=== PATIENT | male | born 1955 | race Caucasian/White ===

== ENCOUNTER → 2016-09-28 | Outpatient (CLI) | payer OTHER ==
[2016-09-28 16:17] LABS: CHLORIDE,CL 99 mmol/L (98-110); SODIUM,NA 138 mmol/L (136-146)
--- NOTE | 2016-09-28 17:07 | CT ---
CT of the abdomen and pelvis without contrast. HISTORY: Pain TECHNIQUE: Axial CT images were obtained of the abdomen and pelvis without contrast. Coronal and sag ittal reconstructions obtained. FINDINGS: The lung bases are clear, no pleural effusion. There is at least mild fatty infiltration of the liver. The spleen, adrenal glands, and pancreas radha ear unremarkable for noncontrast examination. Cholecystectomy. There is no bulky retroperitoneal lym phadenopathy. No abdominal ascites. There is a 4 mm obstructing stone noted within the mid to distal left ureter with mild to moderate p roximal hydronephrosis. There is also a 5 x 9 mm nonobstructing stone within the upper pole of the l eft kidney. The large and small bowel are normal in caliber without evidence of obstruction. The appendix appear s normal. Mild diverticulosis without evidence of diverticulitis. There is no bulky pelvic lymphaden opathy. No free fluid. No free air. The urinary bladder appears normal. Prostate is mildly prominent . Mild to moderate degenerative changes are noted within the lumbar spine. There is fusion of the SI j oints bilaterally. IMPRESSION: 1. There is a 4 mm obstructing stone within the mid to distal left ureter with [id number] prox imal hydronephrosis. 2. Nonobstructing left nephrolithiasis also noted. 3. Mild diverticulosis without evidence of diverticulitis. 4. Mild fatty infiltration of the liver.
== END ==
LOC: MW.CHIM 15:31
PROVIDERS: ATTEND Internal Medicine
DX: N13.2 Hydronephrosis with renal and ureteral calculous obstruction (principal); K57.90 Diverticulosis of intestine, part unspecified, without perforation or abscess without bleeding; K76.0 Fatty (change of) liver, not elsewhere classified
CPT/HCPCS: 36415; 74176; 74176-26; 80053; 81001; 84550; 85025; 85652; 86140

== ENCOUNTER 2019-12-26 13:37 | Emergency (ER) | payer MEDICARE, OTHER ==
--- NOTE | 2019-12-26 14:10 | EDM.PDOC ---
ED HPI GENERAL MEDICAL PROBLEM - General Chief Complaint: Lower Extremity Injury/Pain Stated Complaint: NKLE INJURY Time Seen by Provider: 12/26/19 13:42 Source of Information: Reports: Patient History Limitations: Reports: No Limitations - History of Present Illness INITIAL COMMENTS - FREE TEXT/NARRATIVE: Presents reporting a fall. The patient states that last night he was carrying a shop vac down a flight of stairs when he stepped on a small object on the step and tripped, hyperextending and inverting his left ankle. He has been walking on it since last night. He states that weightbearing is not too bad but the range of motion is limited by pain. He has quite a bit of swelling and bruising. He has a history of hypertension and peripheral neuropathy but is otherwise healthy and does not smoke. He denies any other injury in the fall left ankle Pain Score (Numeric/FACES): 2 - Related Data Allergies Allergy/AdvReac Type Severity Reaction Status Date / Time No Known Allergies Allergy Verified 12/26/19 13:50 Home Meds: Home Meds Ibuprofen [Motrin] 400 mg PO BEDTIME PRN 12/26/19 [History] Metoprolol Succinate mg PO DAILY 12/26/19 [History] amLODIPine Besylate [Amlodipine Besylate] mg PO DAILY 12/26/19 [History] hydroCHLOROthiazide [Hydrochlorothiazide] 25 mg PO DAILY 12/26/19 [History] Past Medical History Cardiovascular History: Reports: High Cholesterol, Hypertension - Infectious Disease History Infectious Disease History: Reports: None - Past Surgical History HEENT Surgical History: Reports: Tonsillectomy GI Surgical History: Reports: Cholecystectomy Musculoskeletal Surgical History: Reports: Knee Replacement Other Musculoskeletal Surgeries/Procedures:: right knee Social & Family History - Family History Family Medical History: Noncontributory - Tobacco Use Smoking Status *Q: Never Smoker - Caffeine Use Caffeine Use: Reports: Soda - Recreational Drug Use Recreational Drug Use: No Review of Systems - Review of Systems Review Of Systems: Comprehensive ROS is negative, except as noted in HPI. ED EXAM, GENERAL - Physical Exam Exam: See Below Exam Limited By: No Limitations General Appearance: Alert, No Apparent Distress Ears: Normal External Exam Nose: Normal Inspection Throat/Mouth: Normal Inspection Head: Atraumatic, Normocephalic Neck: Normal Inspection Respiratory/Chest: No Respiratory Distress, Lungs Clear, Normal Breath Sounds Cardiovascular: Regular Rate, Rhythm Extremities: Normal Inspection, Other (Left lower leg, ankle and forefoot swollen and ecchymotic. Pedal pulse strong. Full range of motion of the ankle and toes with ankle range limited by pain particularly on inversion.) Neurological: Alert, Oriented Psychiatric: Normal Affect, Normal Mood Lymphatic: No Adenopathy Course - Vital Signs Last Recorded V/S: Last Vital Signs Temp 36.0 C L 12/26/19 13:52 Pulse 67 12/26/19 13:52 Resp 18 12/26/19 13:52 BP 151/86 H 12/26/19 13:52 Pulse Ox 96 12/26/19 13:52 Departure - Departure Time of Disposition: 15:28 Disposition: Home, Self-Care 01 Condition: Good Clinical Impression: Fibula fracture Qualifiers: Encounter type: initial encounter Fibula location: shaft Fracture type: closed Fracture morphology: oblique Fracture alignment: nondisplaced Laterality: left Qualified Code(s): S82.435A - Nondisplaced oblique fracture of shaft of left fibula, initial encounter for closed fracture - Discharge Information Referrals: Hugo Casanova MD [Primary Care Provider] - Kraig Vela MD [Physician] - Forms: ED Department Discharge Additional Instructions: The following information is given to patients seen in the emergency department who are being discharged to home. This information is to outline your options for follow-up care. We provide all patients seen in our emergency department with a follow-up referral. The need for follow-up, as well as the timing and circumstances, are variable depending upon the specifics of your emergency department visit. If you don't have a primary care physician on staff, we will provide you with a referral. We always advise you to contact your personal physician following an emergency department visit to inform them of the circumstance of the visit and for follow-up with them and/or the need for any referrals to a consulting specialist. The emergency department will also refer you to a specialist when appropriate. T his referral assures that you have the opportunity for follow-up care with a specialist. All of these measure are taken in an effort to provide you with optimal care, which includes your follow-up. Under all circumstances we always encourage you to contact your private physician who remains a resource for coordinating your care. When calling for follow-up care, please make the office aware that this follow-up is from your recent emergency room visit. If for any reason you are refused follow-up, please contact the [facility] Emergency Department at and asked to speak to the emergency department charge nurse. 1. Wear your boot. 2. Elevate. Cool pack 20 minutes every 3-4 hours. 3. Partial weight bearing with crutches. 4. Make an appointment with Dr. Aniceto Vela [facility], [address] [place] [id number] for follow up. Sepsis Event Note (ED) - Evaluation Sepsis Screening Result: No Definite Risk - Focused Exam Vital Signs: Vital Signs Temp Pulse Resp BP Pulse Ox 12/26/19 13:52 36.0 C L 67 18 151/86 H 96
--- NOTE | 2019-12-26 14:48 | CR ---
Left ankle: 3 views left ankle were obtained. Fracture is noted within the distal one third diaphysis of the fibula. Alignment remains anatomic. Fracture is noted within the posterior malleolus. Small calcifications are seen off the ankle believed to represent old injury. Soft tissue swelling is noted. Plantar spur is noted as well as plantar calcifications which appear chronic. Impression: 1. Distal fibular shaft fracture with posterior malleolar fracture. 2. Other findings as noted above. Diagnostic code #3 Study was dictated in MDT
== END 2019-12-26 15:51 | disposition home or self-care (01) ==
LOC: MW.ED 13:37
DX: S82.435A Nondisplaced oblique fracture of shaft of left fibula, initial encounter for closed fracture (principal); I10 Essential (primary) hypertension; Z79.899 Other long term (current) drug therapy; W10.9XXA Fall (on) (from) unspecified stairs and steps, initial encounter
CPT/HCPCS: 73610-26-LT; 73610-LT; 99283-25